=== PATIENT | female | born 1975 | race Two or more races ===

== ENCOUNTER → 2024-07-02 | Day surgery (SDC) | payer OTHER ==
--- NOTE | 2024-06-29 12:28 | DVHHP ---
ADMIT DATE: 07/02/2024 CHIEF COMPLAINT: Abnormal uterine bleeding. HISTORY OF PRESENT ILLNESS: The patient is a 49-year-old 5, para 5, admitted for D and C, hysteroscopy, endometrial ablation. The patient had endometrial biopsy, which was negative for any abnormality. Her ultrasound reveals 9.4 x 5 x 6 cm uterus. The patient reports having heavy bleeding. PAST MEDICAL HISTORY: Hiatal hernia, fatty liver. PAST SURGICAL HISTORY: Cholecystectomy. SOCIAL HISTORY: None. FAMILY HISTORY: None. OBSTETRIC AND GYNECOLOGIC HISTORY: Five normal vaginal deliveries. REVIEW OF SYSTEMS: Consistent with HPI. PHYSICAL EXAMINATION: VITAL SIGNS: Stable, afebrile. HEENT: Within normal limits. CARDIOVASCULAR: Regular rate and rhythm. LUNGS: Clear to auscultation. BREASTS: Symmetrical. No masses. ABDOMEN: Soft, obese. PELVIC: External genitalia within normal limits. Vagina normal. Cervix: Grossly normal-appearing uterus, 9-10 week size. Adnexa nonpalpable. EXTREMITIES: No clubbing, cyanosis or edema. IMPRESSION: Abnormal uterine bleeding. PLAN: D and C, hysteroscopy, endometrial ablation. Informed consent obtained. Risks, complication of surgery including infection, bleeding, perforation of uterus, failure rate with the procedure discussed with the patient. Options reviewed. All questions answered. The patient fully understands. She wishes to proceed with planned procedure. Failure rate discussed with the patient. DO TERRELL Bradley/FUENTES/LOUIS TID: [id number] RECEIPT: [id number]
[~2024-07-02] VITALS: Ht 160 cm; Wt 97.5 kg
[~2024-07-02] MED LIST: ACETAMINOPHEN IV 1000 MG/100ML (10MG/ML) IV PRN; DexAMETHasone SOD PHOS 10MG/1ML VIAL INJ ONE; HYDR-4072 PO; HYDROmorphone HCL 2 MG/ML VL/or syr IV PRN; LACTATED RINGER'S 1,000 ML IV SCH; LANS30TA8 PO; MEPERIDINE HCL (25 MG/ML) 1ML VIAL IV PRN; MEPERIDINE HCL (25 MG/ML) 1ML VIAL ONE; MIDAZOLAM HCL 2MG/2ML 2ml VIAL (1mg/ml) ONE; ONDANSETRON HCL 4 MG/2 ML VIAL IV ONE; ONDANSETRON HCL 4 MG/2 ML VIAL IV PRN; ONDANSETRON HCL 4 MG/2 ML VIAL ONE; PROPOFOL 10 MG/ML 20 ML IV ONE; ROCURONIUM 10MG/ML 10ML VIAL IV ONE; SUGAMMADEX 200mg/2ml Vial (100MG/ML) IV ONE; ZOFR4T PO; ePHEDrine SULFATE 50 MG/ML AMP ONE; fentaNYL CITRATE 100 MCG/2 ML VL ONE
[2024-07-02 09:09] VITALS: PULSE 80; RESP 10; TEMP 97.8; O2SAT 95
[2024-07-02 09:55] VITALS: BP 118/60; PULSE 72; RESP 14; O2SAT 99
[2024-07-02] MEDS: ceFAZolin 2 GM/D5W100ml 100 ML IV ONE (14:14)
--- NOTE | 2024-07-02 16:02 | DVHOP2 ---
Operative Report DATE OF OPERATION: 07/02/24 PREOPERATIVE DIAGNOSES: Abnormal uterine bleeding. POSTOPERATIVE DIAGNOSES: Abnormal uterine bleeding. SURGEON: Magdy Davidson D.O./GHISLAINE ANESTHESIOLOGIST: RADHA TYPE OF ANESTHESIA : MAC. CONSENT: The patient was informed of the risks and benefits of the procedure. The patient was informed of the risks and benefits of the procedure. These include but are not limited to , complications of anesthesia, postoperative infection, incomplete relief of symptoms, recurrence of symptoms, damage to blood vessels, nerves and tendons, deep venous thrombosis, pulmonary embolism and possible need for repeat surgery in the future. FINDINGS: Cervix is normal. Uterus is 9 weeks size. Adnexa is nonpalpable. Hysteroscopy examination revealed no evidence of polyps or myomas. SPECIMEN: EMC COMPLICATIONS: None BLOOD PRODUCTS USED: None PROCEDURES: Dilation and curettage, hysteroscopy, and endometrial ablation. PROCEDURE IN DETAIL: The patient was taken to the operating room, where he was placed under MAC anesthesia. She was then prepped and draped in the usual sterile manner in dorsal lithotomy position. Bladder was emptied using a straight catheter. Examination under anesthesia revealed the above findings. A weighted speculum was placed in the vagina. Anterior lip of the cervix was grasped using single tooth tenaculum. Cervix was dilated. Uterus was sounded to 9 cm. Hysteroscope was advanced. Survey of uterine cavity revealed no evidence of polyp or myoma. Hysteroscope was removed. Endometrial carotene was performed. Endometrial ablation procedure was then performed successfully. Post ablation hysteroscopic findings was consistent with excellent ablation of the entire cavity. No bleeding was noted. All the instruments were removed from the vagina and cervix. Patient tolerated procedure well. She was then taken to the recovery room in stable condition. CONDITION: Stable ESTIMATED BLOOD LOSS: 20 mL Visit Coding OBGYN Date of Service: Jul 02, 2024 Billing Provider: MAGDY DAVIDSON DO POOL CLEANER Common Visit Codes: 42748-KIJ/OBS SAME DATE (HIGH) POOL CLEANER Procedure Codes: 52122-[id number], SURGICAL MAGDY DAVIDSON DO Jul 02, 2024 16:02
--- NOTE | 2024-07-02 16:07 | POSTOP ---
Post-Operative Note Post-Operative Note Preop Diagnosis AUB Postop Diagnosis: aub Operation performed D AND C HYSTEROSCOPY ENDOMETRIAL ABALATION Specimen EMC Anesthesia: Mac Anesthesiologist: OVI Blood Loss(fluid mgmt) 20ML Surgeon Magdy Davidson Pulp Refiner Operator GHISLAINE Dunlap NA Complications & Mgmt NONE Date 07/02/24 Time 16:02 Visit Coding OBGYN Date of Service: Jul 02, 2024 Billing Provider: MAGDY DAVIDSON DO COUNSELOR AT LAW Common Visit Codes: 31118-NNN/OBS SAME DATE (HIGH) COUNSELOR AT LAW Procedure Codes: 80381-[id number], SURG: W/EA MAGDY DAVIDSON DO Jul 02, 2024 16:07
--- NOTE | 2024-07-02 16:09 | DVHDS2 ---
Physician Discharge Progress N Final Diagnosis: aub Operations or Procedures: Operations or Procedures D AND C HYSTEROSCOPY ENDOMETRIAL ABALATION Condition on Discharge: Good Disposition: Home Discharge Instructions: Diet: Regular Activity: Light activity Follow Up/Referral: 1w Medications: parminder napoles Follow Up Care: Specialist: 1W Discharge Statement: "Patient was advised to return to the ER or call 911 if any headaches, dizziness, shortness of breath, chest pain, abdominal pain, bleeding, fevers, or worsening of medical condition. Patient was counseled about treatment plan, medications, possible side effects, patientverbalized understanding. All questions were answered to the best of my ability. This discharge took greater then 30 minutes in planning, reviewing documentation, counseling the patient, and discussing with other team members." Visit Coding OBGYN Date of Service: Jul 02, 2024 Billing Provider: MAGDY MEJIAS DO MANAGER MALL Common Visit Codes: 37694-LFG/OBS DISCH DAY >30MIN MANAGER MALL Procedure Codes: 93031-[id number], SURG: W/MAGDY MOLINA DO Jul 02, 2024 16:09
== END | disposition home or self-care (01) ==
LOC: SUR 07:44
PROVIDERS: ATTEND Obstetrics & Gynecology
DX: N93.9 Abnormal uterine and vaginal bleeding, unspecified (principal); N92.0 Excessive and frequent menstruation with regular cycle; Z90.49 Acquired absence of other specified parts of digestive tract; K76.0 Fatty (change of) liver, not elsewhere classified; E66.9 Obesity, unspecified; Z68.33 Body mass index [BMI] 33.0-33.9, adult
CPT/HCPCS: 58563; 86850; 86900; 86901; 88305; J1100; J2175; J2250; J2405; J2704; J3010